=== PATIENT | female | born 2000 ===

== ENCOUNTER 2024-10-30 17:14 | Emergency (ER) | payer MEDICAID, SELFPAY ==
--- NOTE | ~2024-10-30 | US_ITS ---
EXAMINATION: US , LIMITED CLINICAL INFORMATION: patient with pain and vomiting. COMPARISON: None available. TECHNIQUE: Limited transabdominal ultrasound performed. FINDINGS: The uterus is normal in appearance. There is a single intrauterine gestation of approximately 6 weeks and 2 days by crown-rump length. Yolk sac is seen. There is normal cardiac activity with heart rate of 122 bpm. There are two small subchorionic hemorrhages. Both ovaries are visualized and normal in appearance with the right ovary measuring 3.1 x 1.3 x 2.5 cm and the left ovary measuring 2.8 x 1.2 x 1.2 cm. There is no significant free fluid within the pelvis. US/US OB limited IMPRESSION: Single viable intrauterine gestation of approximately 6 weeks and 2 days by crown-rump length. The expected date of delivery is June 24, 2025. Small subchorionic hemorrhages. Electronically signed by: Ezra Cornell MD 10/31/2024 01:46 AM [facility]
[2024-10-30 17:20] VITALS: BP 119/80; PULSE 109; RESP 18; TEMP 36.4; O2SAT 99; BMI 21.3
--- NOTE | 2024-10-30 17:20 | ED.ABDPAIN ---
HPI - Abdominal Pain General Chief Complaint: Abdominal Pain Stated Complaint: Stomach pain, vomiting Time Seen by Provider: 10/30/24 20:43 Source: patient Mode of arrival: ambulatory Limitations: no limitations History of Present Illness ED Provider: DR. Sutherland HPI narrative: 24-year-old female came in for evaluation of nausea, vomiting, abdominal pain for the past 8 days. Symptoms started after Thanksgiving, no other sick contacts, no recent travel, no recent use of antibiotic, no history of intra-abdominal surgery, no dysuria, no frequency urination, no hematuria. No fever, chills. No bowel movement for the past 2-3 days. Patient rates chance of being but not sure. Admit to smoking marijuana daily never had problem with vomiting and smoking marijuana in the past. Related Data Previous Rx's ?Medication ?Instructions ?Recorded ondansetron 4 mg disintegrating 4 mg PO Q6-8H PRN nausea and 10/31/24 tablet vomiting #14 tabs Allergies Allergy/AdvReac Type Severity Reaction Status Date / Time No Known Allergies Allergy Verified 10/30/24 17:24 Review of Systems Review of Systems All other systems are reviewed and are negative Constitutional: Reports as per HPI and Reports no additional constitutional complaints Eyes: Reports as per HPI and Reports no additional eye complaints Reports system reviewed and no additional complaints, except as documented Cardiovascular: Reports as per HPI and Reports no additional cardiovascular complaints Respiratory: Reports as per HPI and Reports no additional respiratory complaints Gastrointestinal: Reports as per HPI and Reports no additional gastrointestinal complaints Genitourinary: Reports no additional female genitourinary complaints Musculoskeletal: Reports no additional musculoskeletal complaints Skin/Breast: Reports system reviewed and no additional complaints, except as docu Psychiatric: Reports no additional psychiatric complaints Endocrine: Reports no additional endocrine complaints Hematologic/Lymphatic: Reports no additional hematologic/lymphatic complaints Allergic/Immunologic: Reports no additional allergic/immunologic complaints Reports system reviewed and no additional complaints, except as documented and Reports Abnormal speech present [facility] Social History Social History Advance Directives: No Advance Directives Information Provided: No Physical Exam ED Vital Signs: Vital Signs - 24 hr 10/30/24 17:20 10/30/24 21:43 10/30/24 23:39 Temperature 97.6 F 97.1 F 98.1 F Pulse Rate 109 H 75 79 Respiratory Rate 18 16 16 Blood Pressure 119/80 111/64 106/58 L Pulse Oximetry 99 100 98 Oxygen Delivery Method Room Air Room Air Room Air 10/31/24 01:47 Temperature 98.8 F Pulse Rate 72 Respiratory Rate 16 Blood Pressure 109/56 L Pulse Oximetry 97 Oxygen Delivery Method Room Air BMI result Body Mass Index 21.3 Vital signs have been reviewed and appear to be correct. Blood pressure elevated. Heart rate normal. Respiratory rate normal. Temperature normal. Oxygen saturation normal. Appearance: Alert. Oriented X3. No acute distress. Head: Normal external exam. Normocephalic. Atraumatic. No Otero signs noted. No raccoon eyes noted Eyes: PERRLA. EOMI. Conjunctiva and sclera normal. Eyelids normal. ENT: TM's Normal. Pharynx normal. Uvula midline. Moist mucous membranes. No trismus noted. No drooling noted. No muffled voice noted. Neck: Normal inspection. Neck supple. FROM. No adenopathy. Thyroid Normal. No meningeal signs. No neck mass noted. CVS: Normal heart rate and rhythm. Heart sound normal. No murmurs noted. Pulses normal throughout. Respiratory: No respiratory distress. Painless inspiration. Breath sounds normal. No wheezes/rales/rhonchi noted. Chest nontender. No accessory muscle usage noted or decreased air movement noted. Abdomen: Soft and nontender. Bowel sounds normal in all 4 quadrants. No distention noted. No organomegaly noted. No visible injury noted. Back: No CVA tenderness. Full range of motion noted. Skin: Skin warm and dry. Normal skin color. Normal skin turgor. No rashes/lesions/lacerations noted. Extremities: No lower extremity edema. Extremities exhibit normal range of motion. Extremities nontender. Neuro: Oriented X 3. Cranial nerve exam: II-XII are grossly intact No motor deficit. No sensory deficit. Reflexes normal. Course Course Course Narrative: This is a Rapid Medical Examination (RME) performed by Curt Holm PA-C in triage. Full HPI, ROS, assessment and treatment plan per primary provider in the Main ED. 24 yo female here for eval of intermittent periumbilical abd pain and vomiting since 10/23/24. abd pain currently 4/10, cramping in nature. not exacerbated w/ eating. LMP 10/18/24. reports chance of . denies vaginal bleeding or discharge. no fever/chills. no urinary symptoms. admits to smoking marijuana - recently quit. no other ilicit substance use. no improvement with hot packs or showers. + abd soft, ND/NT Plan: labs, UA, u preg Reevaluation(s) Reevaluation #1: 24-year-old female came in with abdominal pain and vomiting, patient found to be unknown LMP, await for ultrasound, ABO Rh type, and patient tolerate p.o. intake case signed out to Dr. Taylor. Time: 01:41 Medical Decision Making Medical Decision Making [facility] Narrative: 415: Patient has been feeling better ultrasound showed 6 weeks 2 days IUP with small amount of subchorionic bleed discharge patient home advised to follow up witOBG Differential Diagnosis Differential Diagnoses: The differential diagnosis associated with the presentation includes (Gastroenteritis, food poisoning, , ectopic , hyperemesis gravidarum, electrolyte derangement, dehydration, severe anemia.) Admission/Observation Consideration of admission/observation: Escalation of care including admission/observation considered Lab Data [facility] Lab Attestation statement: I reviewed the patient's lab results. 10/30/24 17:31 10/30/24 17:30 Labs: Lab Results 10/30/24 10/30/24 10/30/24 Range/Units 17:30 17:31 22:37 WBC 8.4 (4.8-10.8) X10*3/uL RBC 4.57 (4.20-5.50) X10*6/uL Hgb 14.2 (12.0-16.0) g/dl Hct 40.4 (37.0-47.0) % MCV 88.4 (80.0-98.0) fL MCH 31.1 (27.0-33.0) pg MCHC 35.1 H (31.0-35.0) g/dl RDW 11.4 (11.0-16.0) % Plt Count 256 (160-400) X10*3/uL MPV 9.9 (9.4-12.3) fL Immature Gran % (Auto) 0.4 (0.0-0.4) % Neut % (Auto) 72.4 (45-73) % Lymph % (Auto) 18.1 L (20-40) % [facility] [facility] % (Auto) 8.8 (2-11) % Eos % (Auto) 0.1 (0-4) % Baso % (Auto) 0.2 (0-2) % Lymph # (Auto) 1.5 (1.2-4.9) X10*3/uL [facility] [place] # (Auto) 0.7 (0.1-1.2) X10*3/uL Eos # (Auto) 0.0 (0.0-0.4) X10*3/uL Baso # (Auto) 0.0 (0.0-0.2) X10*3/uL Abs Immat Gran (auto) 0.03 (0.00-0.03) X10*3/uL Absolute Neuts (auto) 6.1 (2.0-8.3) x10*3/uL Absolute Nucleated RBC 0.000 (0.0-0.012) X10*3/uL Nucleated RBC % (auto) 0.0 (0.0-0.2) /100WBC Sodium 134 L (135-145) mmol/L Potassium 3.6 (3.3-5.1) mmol/L Chloride 102 (96-108) mmol/L Carbon Dioxide 19 L (22-29) mmol/L Anion Gap 17 (12-20) BUN 9 (9-16) mg/dL Creatinine 0.76 (0.5-1.4) mg/dL Estim Creat Clear Calc 99.4 Estimated GFR > 60 Random Glucose 84 (60-115) mg/dL Calcium 10.2 (8.4-10.2) mg/dL Magnesium 1.9 (1.6-2.6) mg/dL Total Bilirubin 1.0 (0.0-1.0) mg/dL AST 19 (5-31) U/L ALT 10 (0-31) U/L Alkaline Phosphatase 43 (39-117) U/L Total Protein 8.5 H (6.5-8.0) g/dL Albumin 4.9 (3.5-5.0) g/dL Lipase 11 (8-78) U/L Beta HCG, Quant [id number] mIU/mL Urine Color Yellow Urine Appearance Clear Urine pH 5.5 (5.0-9.0) Ur Specific [employer] Mdl 1.025 (1.005-1.025) Urine Protein Trace (Neg-Trace) mg/dL Urine Glucose (UA) Negative (Negative) mg/dL Urine Ketones >=160 (Negative) mg/dL Urine Blood Negative (Negative) Urine Nitrite Negative (Negative) Ur Leukocyte Esterase Negative (Negative) Urine Test POSITIVE H (NEGATIVE) Influenza Type A (PCR) NEGATIVE (Negative) Influenza Type B (PCR) NEGATIVE (Negative) RSV RNA Qual (PCR) NEGATIVE (Negative) SARS-CoV-2 RNA (RT-PCR) NEGATIVE (Negative) Blood Type 10/31/24 Range/Units 02:01 WBC (4.8-10.8) X10*3/uL RBC (4.20-5.50) X10*6/uL Hgb (12.0-16.0) g/dl Hct (37.0-47.0) % MCV (80.0-98.0) fL MCH (27.0-33.0) pg MCHC (31.0-35.0) g/dl RDW (11.0-16.0) % Plt Count (160-400) X10*3/uL MPV (9.4-12.3) fL Immature Gran % (Auto) (0.0-0.4) % Neut % (Auto) (45-73) % Lymph % (Auto) (20-40) % [facility] % (Auto) (2-11) % Eos % (Auto) (0-4) % Baso % (Auto) (0-2) % Lymph # (Auto) (1.2-4.9) X10*3/uL [facility] [place] # (Auto) (0.1-1.2) X10*3/uL Eos # (Auto) (0.0-0.4) X10*3/uL Baso # (Auto) (0.0-0.2) X10*3/uL Abs Immat Gran (auto) (0.00-0.03) X10*3/uL Absolute Neuts (auto) (2.0-8.3) x10*3/uL Absolute Nucleated RBC (0.0-0.012) X10*3/uL Nucleated RBC % (auto) (0.0-0.2) /100WBC Sodium (135-145) mmol/L Potassium (3.3-5.1) mmol/L Chloride (96-108) mmol/L Carbon Dioxide (22-29) mmol/L Anion Gap (12-20) BUN (9-16) mg/dL Creatinine (0.5-1.4) mg/dL Estim Creat Clear Calc Estimated GFR Random Glucose (60-115) mg/dL Calcium (8.4-10.2) mg/dL Magnesium (1.6-2.6) mg/dL Total Bilirubin (0.0-1.0) mg/dL AST (5-31) U/L ALT (0-31) U/L Alkaline Phosphatase (39-117) U/L Total Protein (6.5-8.0) g/dL Albumin (3.5-5.0) g/dL Lipase (8-78) U/L Beta HCG, Quant mIU/mL Urine Color Urine Appearance Urine pH (5.0-9.0) Ur Specific [employer] Mdl (1.005-1.025) Urine Protein (Neg-Trace) mg/dL Urine Glucose (UA) (Negative) mg/dL Urine Ketones (Negative) mg/dL Urine Blood (Negative) Urine Nitrite (Negative) Ur Leukocyte Esterase (Negative) Urine Test (NEGATIVE) Influenza Type A (PCR) (Negative) Influenza Type B (PCR) (Negative) RSV RNA Qual (PCR) (Negative) SARS-CoV-2 RNA (RT-PCR) (Negative) Blood Type O Positive Radiology Impression Discussion of test interpretation with radiology: I have reviewed the radiologist's reading. Radiologist Impression: [place] [id number] Ultrasound Report Signed Patient: Tiffanie Tejada MR#: [id number] : 2000 Acct:[id number] Age/Sex: 24 / F ADM Date: 10/30/24 Loc: .ED Attending Dr: Ordering Physician: Felicitas Sutherland MD Date of Service: 10/31/24 Procedure(s): US OB limited Accession Number(s): [id number] cc: Felicitas Sutherland MD; Physician,None ~ EXAMINATION: US , LIMITED CLINICAL INFORMATION: patient with pain and vomiting. COMPARISON: None available. TECHNIQUE: Limited transabdominal ultrasound performed. FINDINGS: The uterus is normal in appearance. There is a single intrauterine gestation of approximately 6 weeks and 2 days by crown-rump length. Yolk sac is seen. There is normal cardiac activity with heart rate of 122 bpm. There are two small subchorionic hemorrhages. Both ovaries are visualized and normal in appearance with the right ovary measuring 3.1 x 1.3 x 2.5 cm and the left ovary measuring 2.8 x 1.2 x 1.2 cm. There is no significant free fluid within the pelvis. US/US OB limited IMPRESSION: Single viable intrauterine gestation of approximately 6 weeks and 2 days by crown-rump length. The expected date of delivery is June 24, 2025. Small subchorionic hemorrhages. Electronically signed by: Ezra Cornell MD 10/31/2024 01:46 AM EST Medications Administered Discontinued Medications Generic Name Dose Route Start Last Admin Trade Name Freq PRN Reason Stop Dose Admin Acetaminophen 650 mg 10/30/24 20:33 10/30/24 21:42 Acetaminophen 325 Mg Tablet PO 10/30/24 20:34 Not Given ONCE ONE Al Hydroxide/Mg Hydroxide 30 ml 10/30/24 20:59 10/30/24 21:25 Magnesium Hydrox/Alum Hydrox 30 Ml Oral.Susp PO 10/30/24 21:00 30 ml ONCE ONE Administration Famotidine 20 mg 10/30/24 20:59 10/30/24 21:21 Famotidine/Pf 20 Mg/2 Ml Vial IVPUSH 10/30/24 21:00 20 mg ONCE ONE Administration Sodium Chloride 1,000 mls @ 999 mls/hr 10/30/24 20:58 10/30/24 22:26 Ns IV 10/30/24 21:58 Infused .Q1H1M ONE Infusion Ondansetron HCl 4 mg 10/30/24 20:33 10/30/24 21:25 Ondansetron Odt 4 Mg Tab.Rapdis TRANSLINGU 10/30/24 20:34 Not Given ONCE ONE Ondansetron HCl 4 mg 10/30/24 20:59 10/30/24 21:21 Ondansetron Hcl 4 Mg/2 Ml Vial IVPUSH 10/30/24 21:00 4 mg ONCE ONE Administration Discharge Plan Discharge Clinical Impression: Hyperemesis gravidarum Patient Disposition: Home, Self-Care Instructions: Hyperemesis Gravidarum (ED) Additional Instructions: Drink plenty of fluid Medicine for nausea as prescribed Follow up with scenery [facility] Prescriptions: New ondansetron 4 mg tablet,disintegrating 4 mg PO Q6-8H PRN (Reason: nausea and vomiting) Qty: 14 0RF Print Language: Yi
[2024-10-30 17:35] LABS: MANUAL DIFF FLAG NO
[2024-10-30 17:38] LABS: Basophils Percent Auto 0.2 % (0-2); Eosinophils Percent Auto 0.1 % (0-4); Hematocrit 40.4 % (37.0-47.0); Hemoglobin 14.2 g/dl (12.0-16.0); Imm Gran Abs Auto 0.03 X10*3/uL (0.00-0.03); Imm Gran Pct Auto 0.4 % (0.0-0.4); Lymphocytes Absolute Auto 1.5 X10*3/uL (1.2-4.9); Lymphocytes Percent Auto 18.1 % (20-40); Mean Corpuscular HGB Conc 35.1 g/dl (31.0-35.0); Mean Corpuscular Hemoglobin 31.1 pg (27.0-33.0); Mean Corpuscular Volume 88.4 fL (80.0-98.0); Mean Platelet Volume 9.9 fL (9.4-12.3); Monocytes Absolute Auto 0.7 X10*3/uL (0.1-1.2); Monocytes Percent Auto 8.8 % (2-11); Neutrophils Absolute Auto 6.1 x10*3/uL (2.0-8.3); Neutrophils Percent Auto 72.4 % (45-73); Platelet Count 256 X10*3/uL (160-400); Red Blood Count 4.57 X10*6/uL (4.20-5.50); Red Cell Distribution Width 11.4 % (11.0-16.0); White Blood Count 8.4 X10*3/uL (4.8-10.8)
[2024-10-30 18:03] LABS: Alanine Aminotransferase 10 U/L (0-31); Albumin Level 4.9 g/dL (3.5-5.0); Alkaline Phosphatase 43 U/L (39-117); Anion Gap 17 (12-20); Aspartate Amino Transferase 19 U/L (5-31); Blood Urea Nitrogen 9 mg/dL (9-16); Calcium 10.2 mg/dL (8.4-10.2); Carbon Dioxide 19 mmol/L (22-29); Chloride 102 mmol/L (96-108); Creatinine Clr Calc Pharmacy 99.4; Estimated Glomerular Filt Rate > 60; Glucose Random 84 mg/dL (60-115); Lipase 11 U/L (8-78); Magnesium 1.9 mg/dL (1.6-2.6); Potassium 3.6 mmol/L (3.3-5.1); Sodium 134 mmol/L (135-145); Total Protein 8.5 g/dL (6.5-8.0)
[2024-10-30 18:21] LABS: Influenza A PCR NEGATIVE (Negative); Influenza B PCR NEGATIVE (Negative); Resp Syncy Virus RNA Qual PCR NEGATIVE (Negative); SARS COV2 PCR INHOUSE NEGATIVE (Negative)
[2024-10-30] MEDS: Famotidine/PF 20 MG/2 ML VIAL IVPUSH (21:21)
[2024-10-30] MEDS: ondansetron HCL 4 MG/2 ML VIAL IVPUSH (21:21)
[2024-10-30] MEDS: 0.9 % Sodium Chloride 1,000 ML 999 ML IV (21:23)
[2024-10-30] MEDS: Magnesium Hydrox/Alum Hydrox 30 ML ORAL.SUSP PO (21:25)
[2024-10-30 21:43] VITALS: BP 111/64; PULSE 75; RESP 16; TEMP 36.2; O2SAT 100
[2024-10-30 22:11] LABS: HCG Quantitative 125144 mIU/mL
[2024-10-30 22:44] LABS: Appearance Urine Clear; Color Urine Yellow; Glucose Urine UA Negative (Negative); Leukocyte Esterase Urine Negative (Negative); Nitrite Urine Negative (Negative); PH 5.5 (5.0-9.0); Specific Gravity - Urine 1.025 (1.005-1.025); Urine Blood Negative (Negative); Urine Ketones >=160 mg/dL (Negative); Urine Protein Trace mg/dL (Neg-Trace)
[2024-10-30 22:49] LABS: UPreg QC Valid YES; Urine Pregnancy POSITIVE (NEGATIVE)
[2024-10-30 23:39] VITALS: BP 106/58; PULSE 79; RESP 16; TEMP 36.7; O2SAT 98
[2024-10-31 01:47] VITALS: BP 109/56; PULSE 72; RESP 16; TEMP 37.1; O2SAT 97
[2024-10-31 05:10] VITALS: BP 109/56; PULSE 72; RESP 16; TEMP 37.1; O2SAT 97
== END 2024-10-31 05:11 | disposition home or self-care (01) ==
PROVIDERS: Physician Assistant Medical; Emergency Provider Emergency Medicine
DX: O21.0 Mild hyperemesis gravidarum (principal); Z3A.01 Less than 8 weeks gestation of pregnancy; Z79.899 Other long term (current) drug therapy; Z03.818 Encounter for observation for suspected exposure to other biological agents ruled out
CPT/HCPCS: 0241U; 76815; 80053; 81003; 81025; 83690; 83735; 84702; 85025; 86900; 86901; 96361; 96374; 96375; 99284; J2405